=== PATIENT | male | born 1965 | race Caucasian/White ===

== ENCOUNTER 2021-06-02 04:38 | Day surgery (SDC) | payer OTHER ==
[2021-05-30 15:35] VITALS: BMI 40.2
[2021-06-02] MEDS ORDERED: BUPIVACAINE HCL/PF 0.5% (5MG/ML) 10 ML VIAL ONE ×2 (07:15→08:17)
[2021-06-02] MEDS ORDERED: BUPIVACAINE LIPOSOME/PF (EXPAREL) 266 MG/20 ML VIAL ONE (07:15)
[2021-06-02] MEDS ORDERED: MIDAZOLAM HCL 2 MG/2 ML SINGLE DOSE VIAL ONE ×2 (07:17)
[2021-06-02] MEDS ORDERED: fentaNYL CITRATE 250 MCG/5 ML VIAL ONE (08:04)
[2021-06-02] MEDS ORDERED: PROPOFOL 20 ML ONE ×3 (08:07)
[2021-06-02] MEDS ORDERED: SUCCINYLCHOLINE CHLORIDE 200 MG/10 ML SYRINGE ONE (08:07)
[2021-06-02] MEDS ORDERED: ROCURONIUM BROMIDE 50 MG/5 ML SYRINGE ONE (08:07)
[2021-06-02] MEDS ORDERED: ACETAMINOPHEN INJECTION 100 ML IVPB ONE (08:15)
[2021-06-02] MEDS ORDERED: SODIUM CHLORIDE 0.9% P/F 10 ML VIAL IJ ONE (08:27)
[2021-06-02] MEDS ORDERED: ceFAZolin SODIUM 1 GM VIAL ONE (08:27)
[2021-06-02] MEDS ORDERED: GLYCOPYRROLATE 0.2 MG/1 ML VIAL ONE ×3 (08:30→09:57)
[2021-06-02] MEDS ORDERED: ceFAZolin SODIUM 1 GM VIAL IVPB ONE ×2 (08:45→09:13)
[2021-06-02] MEDS ORDERED: BUPIVACAINE HCL/PF 0.5% (5 MG/ML) 30 ML VIAL IJ ONE (09:13)
[2021-06-02] MEDS ORDERED: DEXAMETHASONE SOD PHOSPHATE 4 MG/1 ML VIAL ONE (09:41)
[2021-06-02] MEDS ORDERED: KETOROLAC TROMETHAMINE 30 MG/1 ML VIAL ONE (09:41)
[2021-06-02] MEDS ORDERED: NEOSTIGMINE METHYLSULFATE 0.5 MG/ML - 10 ML MDV ONE (09:53)
[2021-06-02] MEDS ORDERED: ONDANSETRON 4 MG/2 ML VIAL IVPUSH PRN (10:39)
[2021-06-02] MEDS ORDERED: LACTATED RINGERS SOLUTION 1,000 ML IV SCH (10:45)
[2021-06-02 16:24] VITALS: BP 118/62; PULSE 55; TEMP 97.7
== END 2021-06-02 13:30 | disposition home or self-care (01) ==
LOC: JASU-SURG 04:38
PROVIDERS: ATTEND Surgery
PROC: 8E0W4CZ Robotic Assisted Procedure of Trunk Region, Percutaneous Endoscopic Approach (ICD-10-PCS; 2021-06-02)
PROC: 0YU64JZ Supplement Left Inguinal Region with Synthetic Substitute, Percutaneous Endoscopic Approach (ICD-10-PCS; principal; 2021-06-02 08:00)
DX: K40.90 Unilateral inguinal hernia, without obstruction or gangrene, not specified as recurrent (principal)
CPT/HCPCS: 49650; S2900; 94760; J0131

== ENCOUNTER 2022-02-05 04:28 | Day surgery (SDC) | payer OTHER ==
[2022-02-05] MEDS ORDERED: MIDAZOLAM HCL 2 MG/2 ML SINGLE DOSE VIAL ONE (13:10)
[2022-02-05 14:54] VITALS: BP 136/84; PULSE 54; TEMP 97.3
== END 2022-02-05 15:05 | disposition home or self-care (01) ==
LOC: JASU-SURG 04:28
PROVIDERS: ATTEND Urology
PROC: 0TF4XZZ Fragmentation in Left Kidney Pelvis, External Approach (ICD-10-PCS; principal; 2022-02-05 13:30)
DX: N20.0 Calculus of kidney (principal)

== ENCOUNTER 2024-07-07 05:26 | Day surgery (SDC) | payer OTHER ==
[2024-07-03 13:41] VITALS: BMI 42.0
[2024-07-07 07:12] VITALS: RESP 18
[2024-07-07] MEDS ORDERED: MIDAZOLAM HCL 2 MG/2 ML SINGLE DOSE VIAL ONE (10:45)
[2024-07-07] MEDS ORDERED: ONDANSETRON 4 MG/2 ML VIAL ONE (10:45)
[2024-07-07 13:05] VITALS: BP 143/67; PULSE 50; TEMP 97.9
== END 2024-07-07 12:42 | disposition home or self-care (01) ==
LOC: JASU-SURG 05:26
PROVIDERS: ATTEND Urology
PROC: 0TF4XZZ Fragmentation in Left Kidney Pelvis, External Approach (ICD-10-PCS; principal; 2024-07-07 11:00)
DX: N20.0 Calculus of kidney (principal)